=== PATIENT | female | born 1945 | race Caucasian/White ===

== ENCOUNTER 2016-08-30 08:34 | Inpatient (IN) | payer SELFPAY ==
[~2016-08-30] VITALS: Ht 162.6 cm; Wt 91.1 kg
[~2016-08-30 08:34] MED LIST: ACETAMINOPHEN650 M2 PO; ASPIRIN81 M2 PO; CRANBERRY450 M1 PO; Cipro PO; Colace PO; FISH OIL 1,0001 EAC7 PO; FLONASE ALLERG9.9 ML BOTH NARES; Lovenox SC; MOBIC15 MG PO; MULTIPLE VITAM1 EACH PO; Milk Of Magnesia,MOM PO; SINGULAIR10 MG PO; TUMS500 MG PO; TYLENOL ARTHRI650 MG PO; ZESTORETIC 20-1 EAC1 PO; ZOCOR20 MG PO; Zocor PO
[2016-08-30 09:07] VITALS: BP 135/80
[2016-08-30 15:35] LABS: HEMATOCRIT 37.6 % (36.0-46.0); MCH 31.7 PG (29.0-34.0); MCHC 32.4 G/DL (30.0-36.0); MCV 97.7 FL (83-99); MEAN PLAT.VOLUME 9.1 uM^3 (9.5-12.4); PLATELET COUNT 260 K/uL (156-360); RBC DIS.WIDTH-CV 12.7 % (11.8-14.6); RBC DIS.WIDTH-SD 44.9 % (39-53); RED BLOOD COUNT 3.85 M/uL (3.80-5.20); WHITE BLOOD COUNT 11.8 K/uL (4.1-10.2)
[2016-08-30 15:51] LABS: ANION GAP 16 MEQ/L (2-14); CHLORIDE 97 MEQ/L (99-109); POTASSIUM 3.9 MEQ/L (3.7-5.4); SAMPLE HEMOLYSIS CHECK 0; SAMPLE ICTERIC CHECK 0; SAMPLE LIPEMIA CHECK 0; SODIUM 138 MEQ/L (136-147)
[2016-08-30 15:56] LABS: GFR ESTIMATE (CALCULATED) 34 mL/min/; GLUCOSE 170 mg/dL (70-99); UREA NITROGEN (BUN) 30 mg/dL (9-23)
[2016-08-30 17:51] VITALS: BP 140/75
[2016-08-30 19:36] LABS: HEMATOCRIT 38.2 % (36.0-46.0); MCH 31.5 PG (29.0-34.0); MCHC 32.2 G/DL (30.0-36.0); MCV 97.7 FL (83-99); MEAN PLAT.VOLUME 9.4 uM^3 (9.5-12.4); PLATELET COUNT 277 K/uL (156-360); RBC DIS.WIDTH-CV 12.6 % (11.8-14.6); RBC DIS.WIDTH-SD 44.8 % (39-53); RED BLOOD COUNT 3.91 M/uL (3.80-5.20); WHITE BLOOD COUNT 14.1 K/uL (4.1-10.2)
[2016-08-30 20:04] LABS: ANION GAP 12 MEQ/L (2-14); CHLORIDE 98 MEQ/L (99-109); GFR ESTIMATE (CALCULATED) 28 mL/min/; GLUCOSE 196 mg/dL (70-99); POTASSIUM 4.1 MEQ/L (3.7-5.4); SAMPLE HEMOLYSIS CHECK 0; SAMPLE ICTERIC CHECK 0; SAMPLE LIPEMIA CHECK 0; SODIUM 136 MEQ/L (136-147); UREA NITROGEN (BUN) 33 mg/dL (9-23)
[2016-08-30 23:37] VITALS: BP 128/65
[2016-08-31 04:07] VITALS: BP 117/57
[2016-08-31 07:42] LABS: HEMATOCRIT 36.3 % (36.0-46.0); MCH 31.3 PG (29.0-34.0); MCHC 31.7 G/DL (30.0-36.0); MCV 98.6 FL (83-99); MEAN PLAT.VOLUME 9.5 uM^3 (9.5-12.4); PLATELET COUNT 284 K/uL (156-360); RBC DIS.WIDTH-CV 12.8 % (11.8-14.6); RBC DIS.WIDTH-SD 46.3 % (39-53); RED BLOOD COUNT 3.68 M/uL (3.80-5.20); WHITE BLOOD COUNT 16.5 K/uL (4.1-10.2)
[2016-08-31 08:07] LABS: INTER. NORMALIZED RATIO 1.1; PTT 27.8 (25-32)
[2016-08-31 08:09] LABS: ANION GAP 12 MEQ/L (2-14); CHLORIDE 99 MEQ/L (99-109); GLUCOSE 170 mg/dL (70-99); SAMPLE HEMOLYSIS CHECK 0; SAMPLE ICTERIC CHECK 0; SAMPLE LIPEMIA CHECK 0; SODIUM 138 MEQ/L (136-147); UREA NITROGEN (BUN) 40 mg/dL (9-23)
[2016-08-31 08:10] LABS: GFR ESTIMATE (CALCULATED) 15 mL/min/; POTASSIUM 5.2 MEQ/L (3.7-5.4)
[2016-08-31 11:48] VITALS: BP 107/54
[2016-08-31 16:07] VITALS: BP 106/57
[2016-08-31 18:10] LABS: EOSINOPHIL (%) 0.1 % (0-5); HEMATOCRIT 33.8 % (36.0-46.0); IMMATURE GRANULOCYTE (%) 0.3 % (0.0-0.7); LYMPHOCYTE COUNT 0.7 K/uL (1.0-2.8); MCH 31.5 PG (29.0-34.0); MCHC 32.2 G/DL (30.0-36.0); MCV 97.7 FL (83-99); MEAN PLAT.VOLUME 9.4 uM^3 (9.5-12.4); MONOCYTE (%) 9.9 % (3-12); MONOCYTE COUNT 1.6 K/uL (0-0.8); NEUTROPHIL (%) 84.9 % (45-76); NEUTROPHIL COUNT 13.3 K/uL (1.8-6.4); PLATELET COUNT 256 K/uL (156-360); RBC DIS.WIDTH-CV 13.1 % (11.8-14.6); RBC DIS.WIDTH-SD 46.2 % (39-53); RED BLOOD COUNT 3.46 M/uL (3.80-5.20); WHITE BLOOD COUNT 15.7 K/uL (4.1-10.2)
[2016-08-31 18:42] LABS: ANION GAP 11 MEQ/L (2-14); CHLORIDE 101 MEQ/L (99-109); GFR ESTIMATE (CALCULATED) 12 mL/min/; POTASSIUM 4.5 MEQ/L (3.7-5.4); SAMPLE HEMOLYSIS CHECK 0; SAMPLE ICTERIC CHECK 0; SAMPLE LIPEMIA CHECK 0; SODIUM 137 MEQ/L (136-147); UREA NITROGEN (BUN) 46 mg/dL (9-23)
[2016-08-31 18:44] LABS: GLUCOSE 117 mg/dL (70-99)
[2016-08-31 19:39] VITALS: BP 100/53
[2016-08-31 23:48] VITALS: BP 101/54
[2016-09-01 03:16] VITALS: BP 117/57
[2016-09-01 06:45] LABS: HEMATOCRIT 30.3 % (36.0-46.0); MCH 31.4 PG (29.0-34.0); MCHC 32.3 G/DL (30.0-36.0); MCV 97.1 FL (83-99); MEAN PLAT.VOLUME 9.2 uM^3 (9.5-12.4); PLATELET COUNT 234 K/uL (156-360); RBC DIS.WIDTH-CV 13.3 % (11.8-14.6); RBC DIS.WIDTH-SD 46.9 % (39-53); RED BLOOD COUNT 3.12 M/uL (3.80-5.20); WHITE BLOOD COUNT 13.8 K/uL (4.1-10.2)
[2016-09-01 07:10] LABS: ANION GAP 11 MEQ/L (2-14); CHLORIDE 102 MEQ/L (99-109); GFR ESTIMATE (CALCULATED) 12 mL/min/; GLUCOSE 126 mg/dL (70-99); POTASSIUM 4.1 MEQ/L (3.7-5.4); SAMPLE HEMOLYSIS CHECK 0; SAMPLE ICTERIC CHECK 0; SAMPLE LIPEMIA CHECK 0; SODIUM 136 MEQ/L (136-147); UREA NITROGEN (BUN) 46 mg/dL (9-23)
[2016-09-01 08:40] VITALS: BP 108/64
[2016-09-01 12:00] VITALS: BP 115/66
[2016-09-01 16:03] LABS: MCH 31.7 PG (29.0-34.0); MCHC 32.4 G/DL (30.0-36.0); MCV 97.6 FL (83-99); PLATELET COUNT 224 K/uL (156-360); RBC DIS.WIDTH-SD 46.3 % (39-53); RED BLOOD COUNT 3.38 M/uL (3.80-5.20); WHITE BLOOD COUNT 15.5 K/uL (4.1-10.2)
[2016-09-01 16:29] LABS: ANION GAP 17 MEQ/L (2-14); CHLORIDE 101 MEQ/L (99-109); POTASSIUM 4.6 MEQ/L (3.7-5.4); SAMPLE HEMOLYSIS CHECK 1; SAMPLE ICTERIC CHECK 0; SAMPLE LIPEMIA CHECK 0; SODIUM 136 MEQ/L (136-147)
[2016-09-01 16:35] LABS: GFR ESTIMATE (CALCULATED) 14 mL/min/; GLUCOSE 118 mg/dL (70-99); UREA NITROGEN (BUN) 45 mg/dL (9-23)
[2016-09-01 16:45] VITALS: BP 134/65
[2016-09-01 17:01] LABS: ADD MIUA? YES; BILIRUBIN NEGATIVE; BLOOD LARGE; COLOR YELLOW ((YELLOW)); GLUCOSE (STRIP) NEGATIVE; KETONES NEGATIVE; LEUKOCYTES NEGATIVE; NITRITE NEGATIVE; PH, URINE 5.5 (5-8); PROTEIN (STRIP) 30; SPECIFIC GRAVITY 1.014 (1.000-1.030); UROBILINOGEN 0.2 MG/DL (0.2-1.0)
[2016-09-01 17:07] LABS: BACTERIA NONE SEEN; CASTS NONE SEEN /LPF; CRYSTALS NONE SEEN; EPITHELIAL CELLS RARE; MUCUS NONE SEEN; PATHOLOGICAL CAST NONE SEEN; RED BLOOD CELLS TNTC /HPF (0-5); SMALL ROUND CELL NONE SEEN; WHITE BLOOD CELLS 0-5 /HPF (0-5); YEAST-LIKE CELL NONE SEEN
[2016-09-01 19:39] VITALS: BP 124/65
[2016-09-01 23:43] VITALS: BP 117/58
[2016-09-02 03:40] VITALS: BP 106/58
[2016-09-02 06:22] LABS: EOSINOPHIL (%) 1.1 % (0-5); EOSINOPHIL COUNT 0.1 K/uL (0-0.3); HEMATOCRIT 31.4 % (36.0-46.0); IMMATURE GRANULOCYTE (%) 0.3 % (0.0-0.7); LYMPHOCYTE COUNT 0.6 K/uL (1.0-2.8); MCH 31.3 PG (29.0-34.0); MCHC 31.8 G/DL (30.0-36.0); MCV 98.1 FL (83-99); MEAN PLAT.VOLUME 9.2 uM^3 (9.5-12.4); MONOCYTE (%) 9.1 % (3-12); MONOCYTE COUNT 1.2 K/uL (0-0.8); NEUTROPHIL COUNT 11.3 K/uL (1.8-6.4); PLATELET COUNT 248 K/uL (156-360); WHITE BLOOD COUNT 13.3 K/uL (4.1-10.2)
[2016-09-02 06:47] LABS: ALKALINE PHOSPHATASE 65 IU/L (3-129); ANION GAP 10 MEQ/L (2-14); ANION GAP 9 MEQ/L (2-14); CHLORIDE 103 MEQ/L (99-109); CHLORIDE 104 MEQ/L (99-109); GFR ESTIMATE (CALCULATED) 14 mL/min/; GLUCOSE 136 mg/dL (70-99); MAGNESIUM 1.5 mg/dl (1.3-2.7); POTASSIUM 4.1 MEQ/L (3.7-5.4); POTASSIUM 4.3 MEQ/L (3.7-5.4); SAMPLE HEMOLYSIS CHECK 0; SAMPLE ICTERIC CHECK 0; SAMPLE LIPEMIA CHECK 0; SODIUM 136 MEQ/L (136-147); SODIUM 137 MEQ/L (136-147); TOTAL BILIRUBIN 0.8 MG/DL (0.0-1.0); UREA NITROGEN (BUN) 45 mg/dL (9-23)
[2016-09-02 08:00] VITALS: BP 126/69
[2016-09-02 11:36] VITALS: BP 129/69
[2016-09-02 15:30] VITALS: BP 143/78
[2016-09-02 19:33] VITALS: BP 140/71
[2016-09-02 23:16] VITALS: BP 148/81
[2016-09-03 03:36] VITALS: BP 174/79
[2016-09-03 03:39] VITALS: BP 149/82
[2016-09-03 07:00] LABS: EOSINOPHIL (%) 2.1 % (0-5); EOSINOPHIL COUNT 0.2 K/uL (0-0.3); IMMATURE GRANULOCYTE (%) 0.3 % (0.0-0.7); LYMPHOCYTE COUNT 0.6 K/uL (1.0-2.8); MCH 30.5 PG (29.0-34.0); MCHC 31.6 G/DL (30.0-36.0); MCV 96.6 FL (83-99); MEAN PLAT.VOLUME 9.3 uM^3 (9.5-12.4); MONOCYTE COUNT 1.2 K/uL (0-0.8); NEUTROPHIL (%) 80.7 % (45-76); PLATELET COUNT 283 K/uL (156-360); RBC DIS.WIDTH-CV 13.2 % (11.8-14.6); RBC DIS.WIDTH-SD 46.6 % (39-53); RED BLOOD COUNT 3.21 M/uL (3.80-5.20); WHITE BLOOD COUNT 11.2 K/uL (4.1-10.2)
[2016-09-03 07:53] VITALS: BP 157/79
[2016-09-03 08:08] LABS: ALKALINE PHOSPHATASE 66 IU/L (3-129); ANION GAP 11 MEQ/L (2-14); CHLORIDE 106 MEQ/L (99-109); GFR ESTIMATE (CALCULATED) 22 mL/min/; GLUCOSE 123 mg/dL (70-99); MAGNESIUM 1.6 mg/dl (1.3-2.7); SAMPLE HEMOLYSIS CHECK 0; SAMPLE ICTERIC CHECK 0; SAMPLE LIPEMIA CHECK 0; SODIUM 140 MEQ/L (136-147); TOTAL BILIRUBIN 0.8 MG/DL (0.0-1.0); UREA NITROGEN (BUN) 38 mg/dL (9-23)
[2016-09-03 12:29] VITALS: BP 150/70
[2016-09-03 19:03] VITALS: BP 156/94
[2016-09-03 23:14] VITALS: BP 169/87
[2016-09-04 03:11] VITALS: BP 168/92
[2016-09-04 07:02] LABS: HEMATOCRIT 28.8 % (36.0-46.0); MCH 30.8 PG (29.0-34.0); MCHC 32.3 G/DL (30.0-36.0); MCV 95.4 FL (83-99); MEAN PLAT.VOLUME 8.9 uM^3 (9.5-12.4); PLATELET COUNT 271 K/uL (156-360); RBC DIS.WIDTH-CV 13.2 % (11.8-14.6); RBC DIS.WIDTH-SD 46.5 % (39-53); RED BLOOD COUNT 3.02 M/uL (3.80-5.20); WHITE BLOOD COUNT 9.2 K/uL (4.1-10.2)
[2016-09-04 07:28] LABS: ANION GAP 11 MEQ/L (2-14); CHLORIDE 109 MEQ/L (99-109); GFR ESTIMATE (CALCULATED) 29 mL/min/; GLUCOSE 120 mg/dL (70-99); POTASSIUM 3.9 MEQ/L (3.7-5.4); SAMPLE HEMOLYSIS CHECK 0; SAMPLE ICTERIC CHECK 0; SAMPLE LIPEMIA CHECK 0; SODIUM 143 MEQ/L (136-147); UREA NITROGEN (BUN) 35 mg/dL (9-23)
[2016-09-04 08:20] VITALS: BP 179/87
[2016-09-04 10:58] VITALS: BP 178/87
[2016-09-04 17:06] LABS: HEMATOCRIT 26.8 % (36.0-46.0); MCH 30.7 PG (29.0-34.0); MCHC 31.7 G/DL (30.0-36.0); MCV 96.8 FL (83-99); MEAN PLAT.VOLUME 9.3 uM^3 (9.5-12.4); PLATELET COUNT 244 K/uL (156-360); RBC DIS.WIDTH-CV 13.1 % (11.8-14.6); RBC DIS.WIDTH-SD 46.4 % (39-53); RED BLOOD COUNT 2.77 M/uL (3.80-5.20); WHITE BLOOD COUNT 7.7 K/uL (4.1-10.2)
[2016-09-04 17:22] LABS: ANION GAP 8 MEQ/L (2-14); CHLORIDE 111 MEQ/L (99-109); GFR ESTIMATE (CALCULATED) 39 mL/min/; GLUCOSE 132 mg/dL (70-99); POTASSIUM 4.2 MEQ/L (3.7-5.4); SAMPLE HEMOLYSIS CHECK 0; SAMPLE ICTERIC CHECK 0; SAMPLE LIPEMIA CHECK 0; SODIUM 142 MEQ/L (136-147); UREA NITROGEN (BUN) 33 mg/dL (9-23)
[2016-09-04 18:00] VITALS: BP 108/55
[2016-09-04 19:37] VITALS: BP 100/57
[2016-09-04 23:33] VITALS: BP 121/69
[2016-09-05 03:41] VITALS: BP 141/73
[2016-09-05 07:10] LABS: HEMATOCRIT 28.2 % (36.0-46.0); MCH 31.3 PG (29.0-34.0); MCHC 31.9 G/DL (30.0-36.0); MCV 97.9 FL (83-99); MEAN PLAT.VOLUME 9.4 uM^3 (9.5-12.4); PLATELET COUNT 260 K/uL (156-360); RBC DIS.WIDTH-CV 13.2 % (11.8-14.6); RBC DIS.WIDTH-SD 47.5 % (39-53); RED BLOOD COUNT 2.88 M/uL (3.80-5.20); WHITE BLOOD COUNT 9.9 K/uL (4.1-10.2)
[2016-09-05 07:37] LABS: ANION GAP 7 MEQ/L (2-14); CHLORIDE 109 MEQ/L (99-109); GFR ESTIMATE (CALCULATED) 47 mL/min/; SAMPLE HEMOLYSIS CHECK 0; SAMPLE ICTERIC CHECK 0; SAMPLE LIPEMIA CHECK 0; SODIUM 144 MEQ/L (136-147); UREA NITROGEN (BUN) 33 mg/dL (9-23)
[2016-09-05 07:38] LABS: GLUCOSE 95 mg/dL (70-99)
[2016-09-05 08:30] VITALS: BP 140/68
[2016-09-05 11:44] VITALS: BP 130/60
[2016-09-05 15:31] VITALS: BP 131/68
[2016-09-05 19:05] VITALS: BP 140/70
[2016-09-05 23:10] VITALS: BP 151/75
[2016-09-06 03:10] VITALS: BP 141/76
[2016-09-06 07:45] VITALS: BP 148/77
[2016-09-06 07:52] LABS: HEMATOCRIT 30.4 % (36.0-46.0); MCH 31.3 PG (29.0-34.0); MCHC 31.9 G/DL (30.0-36.0); MCV 98.1 FL (83-99); MEAN PLAT.VOLUME 9.3 uM^3 (9.5-12.4); PLATELET COUNT 283 K/uL (156-360); RBC DIS.WIDTH-CV 13.3 % (11.8-14.6); RBC DIS.WIDTH-SD 47.4 % (39-53)
[2016-09-06 07:54] LABS: WHITE BLOOD COUNT 17.8 K/uL (4.1-10.2)
[2016-09-06 08:25] LABS: ANION GAP 9 MEQ/L (2-14); CHLORIDE 103 MEQ/L (99-109); GFR ESTIMATE (CALCULATED) 58 mL/min/; GLUCOSE 135 mg/dL (70-99); MAGNESIUM 1.3 mg/dl (1.3-2.7); POTASSIUM 3.7 MEQ/L (3.7-5.4); SAMPLE HEMOLYSIS CHECK 0; SAMPLE ICTERIC CHECK 0; SAMPLE LIPEMIA CHECK 0; SODIUM 140 MEQ/L (136-147); UREA NITROGEN (BUN) 21 mg/dL (9-23)
[2016-09-06 11:44] VITALS: BP 159/78
[2016-09-06 15:21] VITALS: BP 152/78
[2016-09-06 20:46] VITALS: BP 170/79
[2016-09-06 23:15] VITALS: BP 126/91
[2016-09-07 03:00] VITALS: BP 175/92
[2016-09-07 07:13] LABS: HEMATOCRIT 29.8 % (36.0-46.0); MCH 31.3 PG (29.0-34.0); MCHC 31.9 G/DL (30.0-36.0); MEAN PLAT.VOLUME 9.3 uM^3 (9.5-12.4); PLATELET COUNT 297 K/uL (156-360); RBC DIS.WIDTH-CV 13.2 % (11.8-14.6); RED BLOOD COUNT 3.04 M/uL (3.80-5.20); WHITE BLOOD COUNT 18.3 K/uL (4.1-10.2)
[2016-09-07 07:38] LABS: ANION GAP 9 MEQ/L (2-14); CHLORIDE 101 MEQ/L (99-109); GFR ESTIMATE (CALCULATED) > 59 mL/min/; GLUCOSE 163 mg/dL (70-99); MAGNESIUM 1.4 mg/dl (1.3-2.7); POTASSIUM 3.5 MEQ/L (3.7-5.4); SAMPLE HEMOLYSIS CHECK 0; SAMPLE ICTERIC CHECK 0; SAMPLE LIPEMIA CHECK 0; SODIUM 141 MEQ/L (136-147); UREA NITROGEN (BUN) 16 mg/dL (9-23)
[2016-09-07 07:50] VITALS: BP 177/82
[2016-09-07 10:43] LABS: C DIFF TOXIN POSITIVE (NEGATIVE)
[2016-09-07 10:44] LABS: PROBE CHECK PASS
[2016-09-07 11:45] VITALS: BP 150/75
[2016-09-07 15:49] VITALS: BP 165/76
[2016-09-07 20:30] VITALS: BP 164/80
[2016-09-08] VITALS (7 sets, daily range): BP systolic 147–169; BP diastolic 81–94
[2016-09-08 06:43] LABS: HEMATOCRIT 31.3 % (36.0-46.0); MCH 30.6 PG (29.0-34.0); MCHC 31.3 G/DL (30.0-36.0); MCV 97.8 FL (83-99); MEAN PLAT.VOLUME 9.4 uM^3 (9.5-12.4); PLATELET COUNT 357 K/uL (156-360); RBC DIS.WIDTH-CV 12.9 % (11.8-14.6); RBC DIS.WIDTH-SD 46.3 % (39-53); WHITE BLOOD COUNT 14.3 K/uL (4.1-10.2)
[2016-09-08 07:19] LABS: ANION GAP 9 MEQ/L (2-14); CHLORIDE 100 MEQ/L (99-109); GFR ESTIMATE (CALCULATED) > 59 mL/min/; GLUCOSE 129 mg/dL (70-99); POTASSIUM 3.4 MEQ/L (3.7-5.4); SAMPLE HEMOLYSIS CHECK 0; SAMPLE ICTERIC CHECK 0; SAMPLE LIPEMIA CHECK 0; SODIUM 138 MEQ/L (136-147); UREA NITROGEN (BUN) 11 mg/dL (9-23)
[2016-09-09 04:58] VITALS: BP 116/85
[2016-09-09 06:43] LABS: MCHC 31.7 G/DL (30.0-36.0); MEAN PLAT.VOLUME 9.2 uM^3 (9.5-12.4); PLATELET COUNT 350 K/uL (156-360); RBC DIS.WIDTH-SD 46.3 % (39-53); RED BLOOD COUNT 3.06 M/uL (3.80-5.20); WHITE BLOOD COUNT 11.6 K/uL (4.1-10.2)
[2016-09-09 08:15] VITALS: BP 158/96
[2016-09-09 08:52] LABS: ANION GAP 8 MEQ/L (2-14); CHLORIDE 101 MEQ/L (99-109); GFR ESTIMATE (CALCULATED) > 59 mL/min/; GLUCOSE 125 mg/dL (70-99); SAMPLE HEMOLYSIS CHECK 0; SAMPLE ICTERIC CHECK 0; SAMPLE LIPEMIA CHECK 0; SODIUM 139 MEQ/L (136-147); UREA NITROGEN (BUN) 8 mg/dL (9-23)
[2016-09-09 09:10] LABS: POTASSIUM 4.1 MEQ/L (3.7-5.4)
[2016-09-09 11:44] VITALS: BP 163/86
[2016-09-09 15:47] VITALS: BP 180/94
[2016-09-09 19:50] VITALS: BP 158/97
[2016-09-09 23:28] VITALS: BP 154/97
[2016-09-10] VITALS (7 sets, daily range): BP systolic 151–194; BP diastolic 74–101
[2016-09-10 11:36] LABS: HEMATOCRIT 33.9 % (36.0-46.0); MCH 30.8 PG (29.0-34.0); MCHC 31.6 G/DL (30.0-36.0); MCV 97.7 FL (83-99); MEAN PLAT.VOLUME 9.4 uM^3 (9.5-12.4); PLATELET COUNT 428 K/uL (156-360); RBC DIS.WIDTH-CV 13.2 % (11.8-14.6); RBC DIS.WIDTH-SD 46.7 % (39-53); RED BLOOD COUNT 3.47 M/uL (3.80-5.20)
[2016-09-10 11:37] LABS: WHITE BLOOD COUNT 17.2 K/uL (4.1-10.2)
[2016-09-10 11:44] LABS: ANION GAP 8 MEQ/L (2-14); CHLORIDE 99 MEQ/L (99-109); POTASSIUM 3.9 MEQ/L (3.7-5.4); SAMPLE HEMOLYSIS CHECK 0; SAMPLE ICTERIC CHECK 0; SAMPLE LIPEMIA CHECK 0; SODIUM 136 MEQ/L (136-147)
[2016-09-10 11:50] LABS: GFR ESTIMATE (CALCULATED) > 59 mL/min/; GLUCOSE 134 mg/dL (70-99); UREA NITROGEN (BUN) 6 mg/dL (9-23)
[2016-09-10 21:09] LABS: HEMATOCRIT 32.9 % (36.0-46.0); MCH 30.8 PG (29.0-34.0); MCHC 31.6 G/DL (30.0-36.0); MCV 97.3 FL (83-99); MEAN PLAT.VOLUME 9.2 uM^3 (9.5-12.4); PLATELET COUNT 367 K/uL (156-360); RBC DIS.WIDTH-CV 13.1 % (11.8-14.6); RED BLOOD COUNT 3.38 M/uL (3.80-5.20); WHITE BLOOD COUNT 16.1 K/uL (4.1-10.2)
[2016-09-10 21:30] LABS: ANION GAP 13 MEQ/L (2-14); CHLORIDE 96 MEQ/L (99-109); GFR ESTIMATE (CALCULATED) > 59 mL/min/; GLUCOSE 125 mg/dL (70-99); POTASSIUM 3.8 MEQ/L (3.7-5.4); SAMPLE HEMOLYSIS CHECK 0; SAMPLE ICTERIC CHECK 0; SAMPLE LIPEMIA CHECK 0; SODIUM 138 MEQ/L (136-147); UREA NITROGEN (BUN) 6 mg/dL (9-23)
[2016-09-11 03:25] VITALS: BP 140/76
[2016-09-11 07:25] LABS: HEMATOCRIT 31.3 % (36.0-46.0); MCH 30.4 PG (29.0-34.0); MCHC 31.3 G/DL (30.0-36.0); MCV 97.2 FL (83-99); MEAN PLAT.VOLUME 9.1 uM^3 (9.5-12.4); PLATELET COUNT 351 K/uL (156-360); RBC DIS.WIDTH-CV 13.2 % (11.8-14.6); RBC DIS.WIDTH-SD 46.5 % (39-53); RED BLOOD COUNT 3.22 M/uL (3.80-5.20); WHITE BLOOD COUNT 15.6 K/uL (4.1-10.2)
[2016-09-11 07:35] VITALS: BP 132/78
[2016-09-11 10:08] LABS: ALKALINE PHOSPHATASE 53 IU/L (3-129); ANION GAP 9 MEQ/L (2-14); CHLORIDE 101 MEQ/L (99-109); DIRECT BILIRUBIN 0.1 mg/dL (0.0-0.3); GFR ESTIMATE (CALCULATED) > 59 mL/min/; GLUCOSE 106 mg/dL (70-99); MAGNESIUM 1.2 mg/dl (1.3-2.7); POTASSIUM 3.9 MEQ/L (3.7-5.4); PREALBUMIN 13.3 mg/dL (10-40); SAMPLE HEMOLYSIS CHECK 0; SAMPLE ICTERIC CHECK 0; SAMPLE LIPEMIA CHECK 0; SODIUM 140 MEQ/L (136-147); TOTAL BILIRUBIN 0.5 MG/DL (0.0-1.0); TRIGLYCERIDES 188 MG/DL (Normal: <150); UREA NITROGEN (BUN) 10 mg/dL (9-23)
[2016-09-11 12:04] VITALS: BP 140/76
[2016-09-11 15:19] VITALS: BP 140/72
[2016-09-11 18:53] VITALS: BP 132/60
[2016-09-12 01:00] VITALS: BP 155/69
[2016-09-12 03:35] VITALS: BP 148/71
[2016-09-12 08:29] LABS: ANION GAP 10 MEQ/L (2-14); CHLORIDE 102 MEQ/L (99-109); GFR ESTIMATE (CALCULATED) > 59 mL/min/; GLUCOSE 108 mg/dL (70-99); POTASSIUM 4.1 MEQ/L (3.7-5.4); SAMPLE HEMOLYSIS CHECK 0; SAMPLE ICTERIC CHECK 0; SAMPLE LIPEMIA CHECK 0; SODIUM 139 MEQ/L (136-147); UREA NITROGEN (BUN) 17 mg/dL (9-23)
[2016-09-12 08:30] VITALS: BP 122/78
[2016-09-12 08:30] LABS: MAGNESIUM 1.9 mg/dl (1.3-2.7)
[2016-09-12 17:12] VITALS: BP 130/80
[2016-09-13] VITALS (7 sets, daily range): BP systolic 125–156; BP diastolic 64–78
[2016-09-13 07:57] LABS: HEMATOCRIT 31.2 % (36.0-46.0); MCH 30.7 PG (29.0-34.0); MCHC 31.1 G/DL (30.0-36.0); MCV 98.7 FL (83-99); MEAN PLAT.VOLUME 9.8 uM^3 (9.5-12.4); PLATELET COUNT 334 K/uL (156-360); RBC DIS.WIDTH-CV 13.8 % (11.8-14.6); RBC DIS.WIDTH-SD 49.3 % (39-53); RED BLOOD COUNT 3.16 M/uL (3.80-5.20); WHITE BLOOD COUNT 16.2 K/uL (4.1-10.2)
[2016-09-13 08:15] LABS: ANION GAP 8 MEQ/L (2-14); CHLORIDE 103 MEQ/L (99-109); GFR ESTIMATE (CALCULATED) > 59 mL/min/; GLUCOSE 102 mg/dL (70-99); MAGNESIUM 1.9 mg/dl (1.3-2.7); POTASSIUM 3.9 MEQ/L (3.7-5.4); SAMPLE HEMOLYSIS CHECK 0; SAMPLE ICTERIC CHECK 0; SAMPLE LIPEMIA CHECK 0; SODIUM 139 MEQ/L (136-147); UREA NITROGEN (BUN) 19 mg/dL (9-23)
[2016-09-14 04:00] VITALS: BP 153/82
[2016-09-14 06:24] LABS: ANION GAP 9 MEQ/L (2-14); CHLORIDE 103 MEQ/L (99-109); GFR ESTIMATE (CALCULATED) > 59 mL/min/; GLUCOSE 160 mg/dL (70-99); MAGNESIUM 1.7 mg/dl (1.3-2.7); POTASSIUM 4.2 MEQ/L (3.7-5.4); SAMPLE HEMOLYSIS CHECK 0; SAMPLE ICTERIC CHECK 0; SAMPLE LIPEMIA CHECK 0; SODIUM 139 MEQ/L (136-147); UREA NITROGEN (BUN) 19 mg/dL (9-23)
[2016-09-14 08:25] VITALS: BP 143/75
[2016-09-14 11:00] VITALS: BP 140/70
[2016-09-14 16:00] VITALS: BP 134/67
[2016-09-14 20:00] VITALS: BP 110/62
[2016-09-15] VITALS (7 sets, daily range): BP systolic 115–139; BP diastolic 60–77
[2016-09-15 06:36] LABS: ANION GAP 10 MEQ/L (2-14); CHLORIDE 105 MEQ/L (99-109); GFR ESTIMATE (CALCULATED) > 59 mL/min/; GLUCOSE 131 mg/dL (70-99); MAGNESIUM 1.8 mg/dl (1.3-2.7); POTASSIUM 4.4 MEQ/L (3.7-5.4); SAMPLE HEMOLYSIS CHECK 0; SAMPLE ICTERIC CHECK 0; SAMPLE LIPEMIA CHECK 0; SODIUM 138 MEQ/L (136-147); UREA NITROGEN (BUN) 24 mg/dL (9-23)
[2016-09-15 14:58] LABS: TROP-I INTERPRETATION NEGATIVE; TROPONIN-I < 0.01 ng/mL (0.0-0.30)
[2016-09-15 22:02] LABS: TROP-I INTERPRETATION NEGATIVE; TROPONIN-I < 0.01 ng/mL (0.0-0.30)
[2016-09-16] VITALS (16 sets, daily range): BP systolic 118–144; BP diastolic 58–92
[2016-09-16 07:49] LABS: ALKALINE PHOSPHATASE 45 IU/L (3-129); ANION GAP 5 MEQ/L (2-14); BASOPHIL COUNT 0.1 K/uL (0-0.1); CHLORIDE 111 MEQ/L (99-109); DIRECT BILIRUBIN 0.1 mg/dL (0.0-0.3); EOSINOPHIL (%) 4.5 % (0-5); EOSINOPHIL COUNT 0.5 K/uL (0-0.3); GFR ESTIMATE (CALCULATED) > 59 mL/min/; GLUCOSE 115 mg/dL (70-99); IMMATURE GRANULOCYTE COUNT 0.2 K/uL; LYMPHOCYTE COUNT 1.5 K/uL (1.0-2.8); MAGNESIUM 1.8 mg/dl (1.3-2.7); MCH 30.8 PG (29.0-34.0); MCV 99.5 FL (83-99); MEAN PLAT.VOLUME 9.7 uM^3 (9.5-12.4); MONOCYTE (%) 10.1 % (3-12); MONOCYTE COUNT 1.2 K/uL (0-0.8); NEUTROPHIL (%) 69.9 % (45-76); NEUTROPHIL COUNT 8.2 K/uL (1.8-6.4); PLATELET COUNT 291 K/uL (156-360); POTASSIUM 4.4 MEQ/L (3.7-5.4); PREALBUMIN 14.2 mg/dL (10-40); RBC DIS.WIDTH-CV 14.3 % (11.8-14.6); RBC DIS.WIDTH-SD 51.2 % (39-53); SAMPLE HEMOLYSIS CHECK 0; SAMPLE ICTERIC CHECK 0; SAMPLE LIPEMIA CHECK 0; SODIUM 139 MEQ/L (136-147); TRIGLYCERIDES 137 MG/DL (Normal: <150); UREA NITROGEN (BUN) 36 mg/dL (9-23); WHITE BLOOD COUNT 11.7 K/uL (4.1-10.2)
[2016-09-16 07:50] LABS: RED BLOOD COUNT 2.11 M/uL (3.80-5.20); TOTAL BILIRUBIN 0.2 MG/DL (0.0-1.0)
[2016-09-16 08:48] LABS: HEMATOLOGY COMMENT 1 SMEAR COMPATIBLE; PLAT.SUFFICIENCY ADEQUATE; USER ID SDF
[2016-09-16 10:05] LABS: HEMATOCRIT 20.6 % (36.0-46.0); MCV 99.5 FL (83-99)
[2016-09-16 17:11] LABS: ANISOCYTOSIS 2+; BURR CELLS 1+; OVALOCYTES RARE
[2016-09-16 17:12] LABS: ABS NEUTROPHIL COUNT 8.09; EOSINOPHIL ABS CT 0.47
[2016-09-16 19:15] LABS: INTER. NORMALIZED RATIO 1.1; PROTHROMBIN TIME 11.3 (9.2-11.2); PTT 28.9 (25-32)
[2016-09-16 19:16] LABS: FIBRINOGEN 479 MG/DL (160-450)
[2016-09-16 19:22] LABS: HEMATOCRIT 29.4 % (36.0-46.0); MCH 30.4 PG (29.0-34.0); MCV 95.1 FL (83-99); MEAN PLAT.VOLUME 9.7 uM^3 (9.5-12.4); PLATELET COUNT 287 K/uL (156-360); RBC DIS.WIDTH-CV 14.9 % (11.8-14.6); RBC DIS.WIDTH-SD 50.4 % (39-53); RED BLOOD COUNT 3.09 M/uL (3.80-5.20); WHITE BLOOD COUNT 18.8 K/uL (4.1-10.2)
[2016-09-16 19:28] LABS: ALKALINE PHOSPHATASE 48 IU/L (3-129); DIRECT BILIRUBIN 0.2 mg/dL (0.0-0.3)
[2016-09-16 19:32] LABS: TOTAL BILIRUBIN 0.7 MG/DL (0.0-1.0)
[2016-09-16 20:18] LABS: D-DIMER LATEX NEGATIVE
[2016-09-16 21:53] LABS: HEMATOLOGY COMMENT 1 REV; PLAT.SUFFICIENCY ADEQUATE; USER ID BW1
[2016-09-16 21:55] LABS: BASOPHIL COUNT 0.1 K/uL (0-0.1); EOSINOPHIL (%) 3.3 % (0-5); EOSINOPHIL COUNT 0.6 K/uL (0-0.3); IMMATURE GRANULOCYTE (%) 2.9 % (0.0-0.7); IMMATURE GRANULOCYTE COUNT 0.5 K/uL; LYMPHOCYTE COUNT 1.6 K/uL (1.0-2.8); MONOCYTE (%) 8.6 % (3-12); MONOCYTE COUNT 1.6 K/uL (0-0.8); NEUTROPHIL (%) 76.2 % (45-76); NEUTROPHIL COUNT 14.3 K/uL (1.8-6.4); NRBC (%) 0.5 /100 WBC (0-0)
[2016-09-17] VITALS (7 sets, daily range): BP systolic 117–137; BP diastolic 60–92
[2016-09-17 02:20] LABS: HEMATOCRIT 28.5 % (36.0-46.0); MCV 94.7 FL (83-99)
[2016-09-17 08:05] LABS: ANION GAP 8 MEQ/L (2-14); CHLORIDE 109 MEQ/L (99-109); GFR ESTIMATE (CALCULATED) > 59 mL/min/; GLUCOSE 123 mg/dL (70-99); MAGNESIUM 1.8 mg/dl (1.3-2.7); POTASSIUM 4.4 MEQ/L (3.7-5.4); SAMPLE HEMOLYSIS CHECK 0; SAMPLE ICTERIC CHECK 0; SAMPLE LIPEMIA CHECK 0; SODIUM 139 MEQ/L (136-147); UREA NITROGEN (BUN) 29 mg/dL (9-23)
[2016-09-17 08:47] LABS: POC NON-PRINT COM 1 ND
[2016-09-17 13:11] LABS: HAPTOGLOBIN+ 286 mg/dL (43-212)
[2016-09-17 13:23] LABS: URINE UREA NITROGEN 23726 MG/24 HR
[2016-09-18 03:11] VITALS: BP 123/69
[2016-09-18 06:36] LABS: NRBC (%) 0.2 /100 WBC (0-0)
[2016-09-18 07:01] LABS: ANION GAP 7 MEQ/L (2-14); CHLORIDE 107 MEQ/L (99-109); GFR ESTIMATE (CALCULATED) > 59 mL/min/; GLUCOSE 99 mg/dL (70-99); POTASSIUM 4.5 MEQ/L (3.7-5.4); SAMPLE HEMOLYSIS CHECK 0; SAMPLE ICTERIC CHECK 0; SAMPLE LIPEMIA CHECK 0; SODIUM 138 MEQ/L (136-147); UREA NITROGEN (BUN) 22 mg/dL (9-23)
[2016-09-18 07:02] LABS: EOSINOPHIL (%) 5.1 % (0-5); EOSINOPHIL COUNT 0.6 K/uL (0-0.3); HEMATOCRIT 28.4 % (36.0-46.0); IMMATURE GRANULOCYTE (%) 2.1 % (0.0-0.7); IMMATURE GRANULOCYTE COUNT 0.3 K/uL; LYMPHOCYTE COUNT 1.3 K/uL (1.0-2.8); MCH 31.3 PG (29.0-34.0); MCHC 32.7 G/DL (30.0-36.0); MCV 95.6 FL (83-99); MEAN PLAT.VOLUME 10.2 uM^3 (9.5-12.4); MONOCYTE (%) 9.8 % (3-12); MONOCYTE COUNT 1.2 K/uL (0-0.8); NEUTROPHIL (%) 72.1 % (45-76); PLATELET COUNT 248 K/uL (156-360); RBC DIS.WIDTH-CV 15.4 % (11.8-14.6); RED BLOOD COUNT 2.97 M/uL (3.80-5.20)
[2016-09-18 07:03] LABS: MAGNESIUM 1.4 mg/dl (1.3-2.7); WHITE BLOOD COUNT 12.5 K/uL (4.1-10.2)
[2016-09-18 07:33] LABS: HEMATOLOGY COMMENT 1 SMEAR COMPATIBLE; USER ID CL
[2016-09-18 08:05] VITALS: BP 138/81
[2016-09-18 10:09] LABS: POC NON-PRINT COM 1 ND
[2016-09-18 10:40] VITALS: BP 130/68
[2016-09-18] MEDS ORDERED: VANCOMYCIN125 MG/2.5 PO (11:09)
[2016-09-18] MEDS ORDERED: LOVENOX40 MG/0.4 SC (11:10)
[2016-09-19 22:26] LABS: DRVVT Mixing Study Interp Not Indicated (()); PTT-LA 38 sec (<=40); dRVVT Screen 41 sec (<=45)
== END 2016-09-18 12:45 | disposition home or self-care (01) | DRG 746 ==
LOC: SDC 08:34 → 2EAST 13:23 → 2SOUTH 13:23 → SDC 15:23 → 2EAST 17:42
PROVIDERS: Internal Medicine Medical Oncology; Internal Medicine Nephrology; Nurse Practitioner Acute Care; Obstetrics & Gynecology Gynecologic Oncology; Physician Assistant; Urology
PROC: 0US Female Reproductive System, Reposition (ICD-10-PCS; principal; 2016-08-30)
PROC: 0UQG0ZZ Repair Vagina, Open Approach (ICD-10-PCS; principal; 2016-08-30)
PROC: 0UBG0ZZ Excision of Vagina, Open Approach (ICD-10-PCS; principal; 2016-08-30)
PROC: 0JQC0ZZ Repair Pelvic Region Subcutaneous Tissue and Fascia, Open Approach (ICD-10-PCS; principal; 2016-08-30)
PROC: 0T9030Z Drainage of Right Kidney with Drainage Device, Percutaneous Approach (ICD-10-PCS; 2016-08-31)
PROC: 0TJB8ZZ Inspection of Bladder, Via Natural or Artificial Opening Endoscopic (ICD-10-PCS; 2016-09-01)
PROC: BT1 Imaging, Urinary System, Fluoroscopy (ICD-10-PCS; 2016-09-01)
PROC: 0T768DZ Dilation of Right Ureter with Intraluminal Device, Via Natural or Artificial Opening Endoscopic (ICD-10-PCS; 2016-09-01)
PROC: 0T180ZB Bypass Bilateral Ureters to Bladder, Open Approach (ICD-10-PCS; 2016-09-04)
PROC: 0T788DZ Dilation of Bilateral Ureters with Intraluminal Device, Via Natural or Artificial Opening Endoscopic (ICD-10-PCS; 2016-09-04)
PROC: 3E0R3CZ (ICD-10-PCS; 2016-09-04)
PROC: 00HU33Z Insertion of Infusion Device into Spinal Canal, Percutaneous Approach (ICD-10-PCS; 2016-09-04)
PROC: 3E0436Z Introduction of Nutritional Substance into Central Vein, Percutaneous Approach (ICD-10-PCS; 2016-09-10)
PROC: 30233N1 Transfusion of Nonautologous Red Blood Cells into Peripheral Vein, Percutaneous Approach (ICD-10-PCS; 2016-09-16)
DX: N81.3 Complete uterovaginal prolapse (principal); N17.0 Acute kidney failure with tubular necrosis; N13.1 Hydronephrosis with ureteral stricture, not elsewhere classified; R18.8 Other ascites; N99.0 Postprocedural (acute) (chronic) kidney failure; A04.7 Enterocolitis due to Clostridium difficile; E44.1 Mild protein-calorie malnutrition; K91.3 Postprocedural intestinal obstruction; I47.1 Supraventricular tachycardia; T82.868A Thrombosis due to vascular prosthetic devices, implants and grafts, initial encounter; I82.611 Acute embolism and thrombosis of superficial veins of right upper extremity; Y84.8 Other medical procedures as the cause of abnormal reaction of the patient, or of later complication, without mention of misadventure at the time of the procedure; N99.81 Other intraoperative complications of genitourinary system; Y65.8 Other specified misadventures during surgical and medical care; I12.9 Hypertensive chronic kidney disease with stage 1 through stage 4 chronic kidney disease, or unspecified chronic kidney disease; N18.3 Chronic kidney disease, stage 3 (moderate); E78.5 Hyperlipidemia, unspecified; J30.2 Other seasonal allergic rhinitis; E83.42 Hypomagnesemia; E73.9 Lactose intolerance, unspecified; D50.0 Iron deficiency anemia secondary to blood loss (chronic); Z86.711 Personal history of pulmonary embolism; Z90.710 Acquired absence of both cervix and uterus
CPT/HCPCS: 50433; 71020; 74000; 74020; 74176; 76770; 76937; 78707; 80048; 80048 91; 80053; 80076; 81003; 81050; 82248; 82272; 82436; 82570; 82948; 83010 90; 83735; 84100; 84133; 84134; 84156; 84300; 84478; 84484; 84540; 84630 90; 85007; 85014; 85018; 85025; 85025 91; 85027; 85378; 85384; 85610; 85613 90; 85730; 85730 90; 86850; 86880; 86900; 86901; 86920; 87493; 88302; 88304; 89190; 93005; 93306; 93971; 94799; A9562; C1769; C1876; C9113; J0131; J0330; J0690; J0696; J0744; J1100; J1170; J1644; J1650; J1885; J1940; J2250; J2270; J2405; J2710; J2765; J3010; J3370; J3475; J7030; J7050; J7120; P9016; S0030

== ENCOUNTER 2017-11-17 07:48 | Inpatient (IN) | payer SELFPAY ==
[~2017-11-17] VITALS: Ht 162.6 cm; Wt 81.6 kg
[~2017-11-17 07:48] MED LIST changes: +ADULT ASPIRIN R81 MG PO; +LIPITOR10 MG PO; +LOVENOX40 MG/0.4 SC; +NORVASC5 MG PO; +VANCOMYCIN125 MG/2.5 PO
[2017-11-17 08:50] VITALS: BP 180/104
[2017-11-17 15:57] VITALS: BP 164/77
[2017-11-17 19:47] VITALS: BP 148/81
[2017-11-17 23:43] VITALS: BP 142/73
[2017-11-17 23:44] VITALS: BP 142/73
[2017-11-18] VITALS: BP 142/73
[2017-11-18 03:28] VITALS: BP 115/68
[2017-11-18 07:26] VITALS: BP 150/78
[2017-11-18 10:51] VITALS: BP 164/79
[2017-11-18 15:10] VITALS: BP 139/65
[2017-11-18 19:31] VITALS: BP 161/77
[2017-11-19] VITALS (7 sets, daily range): BP systolic 159–195; BP diastolic 70–101
[2017-11-19 05:42] LABS: BASOPHIL (%) 0.2 % (0-1); EOSINOPHIL (%) 0.1 % (0-5); HEMATOCRIT 40.8 % (36.0-46.0); HEMOGLOBIN 13.1 G/DL (11.9-15.5); IMMATURE GRANULOCYTE (%) 0.5 % (0.0-0.7); LYMPHOCYTE (%) 3.8 % (15-42); LYMPHOCYTE COUNT 0.6 K/uL (1.0-2.8); MCHC 32.1 G/DL (30.0-36.0); MCV 96.5 FL (83-99); MONOCYTE (%) 7.6 % (3-12); MONOCYTE COUNT 1.1 K/uL (0-0.8); NEUTROPHIL (%) 87.8 % (45-76); NEUTROPHIL COUNT 12.8 K/uL (1.8-6.4); PLATELET COUNT 282 K/uL (156-360); RBC DIS.WIDTH-CV 12.3 % (11.8-14.6); RBC DIS.WIDTH-SD 43.9 % (39-53); RED BLOOD COUNT 4.23 M/uL (3.80-5.20); WHITE BLOOD COUNT 14.6 K/uL (4.1-10.2)
[2017-11-19 05:45] LABS: ALBUMIN 3.8 G/DL (3.2-4.8); CHLORIDE 98 MEQ/L (99-109); SODIUM 136 MEQ/L (136-147); TOTAL BILIRUBIN 1.4 MG/DL (0.0-1.0)
[2017-11-19 05:48] LABS: POTASSIUM 3.5 MEQ/L (3.7-5.4)
[2017-11-19 05:50] LABS: ALKALINE PHOSPHATASE 52 IU/L (3-129); ALT (GPT) 7 IU/L (3-49); AST (GOT) 12 IU/L (2-34); CREATININE 0.8 MG/DL (0.6-1.3); GFR ESTIMATE (CALCULATED) > 59 mL/min/; GLUCOSE 170 mg/dL (70-99); UREA NITROGEN (BUN) 10 mg/dL (9-23)
[2017-11-19 06:44] LABS: HIGH-SENS C-REACTIVE PROTEIN > 8.00 MG/DL (0.02-0.20)
[2017-11-20 00:13] VITALS: BP 175/80
[2017-11-20 04:39] VITALS: BP 167/76
[2017-11-20 09:45] VITALS: BP 146/80
[2017-11-20 11:38] LABS: BASOPHIL (%) 0.2 % (0-1); EOSINOPHIL (%) 1.4 % (0-5); EOSINOPHIL COUNT 0.2 K/uL (0-0.3); HEMATOCRIT 38.9 % (36.0-46.0); HEMOGLOBIN 12.3 G/DL (11.9-15.5); IMMATURE GRANULOCYTE (%) 0.5 % (0.0-0.7); LYMPHOCYTE (%) 8.4 % (15-42); LYMPHOCYTE COUNT 1.1 K/uL (1.0-2.8); MCHC 31.6 G/DL (30.0-36.0); MONOCYTE (%) 9.9 % (3-12); MONOCYTE COUNT 1.2 K/uL (0-0.8); NEUTROPHIL (%) 79.6 % (45-76); PLATELET COUNT 273 K/uL (156-360); RBC DIS.WIDTH-CV 12.3 % (11.8-14.6); RBC DIS.WIDTH-SD 44.4 % (39-53); RED BLOOD COUNT 3.97 M/uL (3.80-5.20); WHITE BLOOD COUNT 12.5 K/uL (4.1-10.2)
[2017-11-20 12:00] LABS: CHLORIDE 101 MEQ/L (99-109); CREATININE 0.7 MG/DL (0.6-1.3); GFR ESTIMATE (CALCULATED) > 59 mL/min/; POTASSIUM 4.1 MEQ/L (3.7-5.4); SODIUM 140 MEQ/L (136-147); UREA NITROGEN (BUN) 13 mg/dL (9-23)
[2017-11-20 12:07] LABS: GLUCOSE 115 mg/dL (70-99)
[2017-11-20 12:48] VITALS: BP 167/89
[2017-11-20 16:41] VITALS: BP 169/79
[2017-11-20 19:00] VITALS: BP 143/71
[2017-11-21 01:17] VITALS: BP 152/77
[2017-11-21 03:50] VITALS: BP 148/76
[2017-11-21 06:55] VITALS: BP 135/66
[2017-11-21 11:00] VITALS: BP 130/71
[2017-11-21] MEDS ORDERED: TYLENOL REGULA325 MG PO (11:28)
== END 2017-11-21 13:26 | disposition home or self-care (01) | DRG 354 ==
LOC: SDC 07:48 → ENRESERV 13:12 → 5EAST 13:13 → 2SOUTH 13:13 → SDC 13:37 → ENRESERV 13:39 → 5EAST 14:31 → SDC 14:45 → ENPENDDIS 11-21 → 5EAST 11-21 13:26
PROVIDERS: Physician Assistant; Student in an Organized Health Care Education/Training Program
PROC: 0WUF0JZ Supplement Abdominal Wall with Synthetic Substitute, Open Approach (ICD-10-PCS; principal; 2017-11-17)
DX: K43.2 Incisional hernia without obstruction or gangrene (principal); K56.7 Ileus, unspecified; M19.90 Unspecified osteoarthritis, unspecified site; E66.8 Other obesity; N18.9 Chronic kidney disease, unspecified; R73.03 Prediabetes; Z68.30 Body mass index [BMI] 30.0-30.9, adult
CPT/HCPCS: 74018; 74019; 80048; 80053; 85025; 86141; 88302; 93005; 94799; 97530 GO; 97530 GP; C1781; J0131; J0690; J1100; J1170; J1650; J2405; J2710; J3010; J3480; J7040; J7120; Q0175; S0020